=== PATIENT | female | born 2000 | race Caucasian/White ===

== ENCOUNTER 2022-04-06 16:32 | Emergency (ER) | payer MEDICAID ==
[~2022-04-06] VITALS: Ht 157.5 cm; Wt 69.0 kg
[2022-04-06 17:12] VITALS: BP 123/74
== END 2022-04-06 20:13 | disposition left against medical advice (07) ==
LOC: ER 16:32
DX: Z53.21 Procedure and treatment not carried out due to patient leaving prior to being seen by health care provider (principal)